=== PATIENT | male | born 2000 | race African-American/Black ===

== ENCOUNTER 2025-01-25 19:10 | Emergency (ER) | payer SELFPAY ==
[~2025-01-25] VITALS: Ht 177.8 cm; Wt 81.0 kg
[2025-01-25 19:47] VITALS: O2SAT 100
[2025-01-25] MEDS ORDERED: IBUP-1455 MT (20:49)
[2025-01-25] MEDS ORDERED: CYCL10TA21 MT (20:49)
[2025-01-25] MEDS: IBUPROFEN 600MG TABLET PO ONE (21:10)
[2025-01-25] MEDS: CYCLOBENZAPRINE 10MG TABLET PO ONE (21:11)
[2025-01-25 21:12] VITALS: BP 109/69; PULSE 91; RESP 16; TEMP 36.8; O2SAT 100
== END 2025-01-25 21:17 | disposition home or self-care (01) ==
LOC: ER 19:10
DX: M54.2 Cervicalgia (principal); M54.9 Dorsalgia, unspecified; M25.511 Pain in right shoulder
CPT/HCPCS: 99283